=== PATIENT | female | born 1965 | race Two or more races ===

== ENCOUNTER 2025-02-02 21:09 | Emergency (ER) | payer MEDICAID, SELFPAY ==
[2025-02-02 21:11] VITALS: BMI 89.0
[2025-02-02 21:23] VITALS: BP 135/72; PULSE 120; RESP 20; TEMP 38.1; O2SAT 96
--- NOTE | 2025-02-02 21:31 | EDNOTE_ITS ---
Upper Respiratory Inf. RME/HPI General Chief Complaint: General Adult/Misc Complain Stated Complaint: BODY ACHE, HEADACHE, COUGH Time Seen by Provider: 02/02/25 21:13 Source: patient, RN notes reviewed and old records reviewed Arrival date/time: 02/02/25 21:09 Mode of arrival: ambulatory Limitations: no limitations RME / HPI RME / HPI Narrative: 59yof presents to ED for fever, congestion and cough that initiated today. No sick contacts however, patient reports multiple family members work around children. Patient c/o mild headache and generalized body aches. No shortness of breath, chest pain, nausea/vomiting or dizziness reported. Tylenol taken this afternoon with mild relief. Related Data Home Medications ?Medication ?Instructions ?Recorded ?Confirmed albuterol sulfate 90 mcg/actuation 2 puff inhalation Q 6H PRN 06/05/19 02/25/22 aerosol inhaler (Ventolin HFA) Shortness Of Breath aspirin 81 mg tablet,delayed 81 mg PO DAILY 06/05/19 0 02/25/22 release (Aspir-) hydrochlorothiazide 25 mg tablet 25 mg PO QDAY 9 02/25/22 cyclobenzaprine 10 mg tablet 10 mg PO TID 08/13/1902/08 gabapentin 300 mg capsule 300 mg PO BID 08/13/1902/25 Previous Rx's ?Medication ?Instructions ?Recorded hydrocodone 5 mg-acetaminophen 325 1 tab PO Q6H PRN pa in #7 tabs 08/13/19 mg tablet ([employer]) ibuprofen 800 mg tablet 800 mg PO Q6H PRN pain #10 t abs 08/13/19 acetaminophen 500 mg tablet 1,000 mg (2 x 500 mg) PO Q 6H PRN 02/03/25 (Tylenol Extra Strength) fever or pain #30 tabs amoxicillin 875 mg-potassium 1 tab PO BID 7 days #14 t abs 02/03/25 clavulanate 125 mg tablet benzonatate 200 mg capsule 200 mg PO Q8HR PRN cough #2 0 caps 02/03/25 dextromethorphan-guaifenesin ER 60 1 tab PO Q12H PRN c ongestion/cough 02/03/25 mg-1,200 mg tab,extend #14 tabs release,12hr (Mucinex DM) ibuprofen 600 mg tablet 600 mg PO Q6H PRN fever or p ain 02/03/25 #30 tabs Allergies Allergy/AdvReac Type Severity Reaction Status Date / Time No Known Allergies Allergy Verified 02/02/25 21:13 Review of Systems Review of Systems Systems Reviewed: All systems reviewed, normal except as documented Constitutional Constitutional: Reports chills, Reports fever(s) and Reports headache(s) ENT Ears, Nose, Mouth, and Throat: Reports headache(s) and Reports nasal congestion Cardiovascular Cardiovascular: Denies chest pain and Denies dyspnea Respiratory Respiratory: Denies dyspnea Neurologic Neurologic: Reports headache(s) Past Medical History Past Medical History CARDIAC: Positive Hypertension RESPIRATORY: Positive Asthma GASTROINTESTINAL: Positive Obesity Social History SMOKING STATUS: Never smoker SUBSTANCE USE: does not use ALCOHOL: Never ED Exam General Limitations: Present no limitations General appearance: Present alert and in no apparent distress Head Head exam: Present atraumatic and normocephalic Eye Eye exam: Present normal appearance, PERRL and EOMI ENT ENT exam: Present normal oropharynx, mucous membranes moist, TM's normal bilaterally and other (Mild UAC) Neck Neck exam: Present normal inspection and full ROM; Absent meningismus Chest Chest inspection: Present normal inspection and symmetric chest wall rise Respiratory Respiratory exam: Present normal lung sounds bilaterally and other (No wheezing, rales or rhonchi); Absent respiratory distress Cardiovascular Cardiovascular exam: Present normal rhythm and tachycardia Extremities Exam Extremities exam: Present normal inspection and full ROM Back Exam Back exam: Present normal inspection and full ROM; Absent tenderness Neurological Exam Neurological exam: Present alert and oriented X3 Psychiatric Psychiatric exam: Present normal affect and normal mood Skin Skin exam: Present warm, dry, intact and normal color Course Quality Measures none Orders Category Date Time Status Bedside COVID-19 Antigen Test NOW Care 02/02/25 21:31 Completed Bedside Influenza A&B Antigen Test NOW Care 02/02/25 21:31 Completed CXR [XR chest 1V] Stat Exams 02/02/25 22:03 Completed CBC Stat Lab 02/02/25 23:49 Completed CMP [Comprehensive Metabolic Panel] Stat Lab 02/02/25 23:49 Completed Lactate (Lactic Acid) Stat Lab 02/02/25 23:49 Completed Acetaminophen Tab [Tylenol ES Tab] Med 02/02/25 21:41 Discontinued 1,000 mg PO X1 ONE HYDROcodone/APAP 10/325 [[employer] 10/325] Med 02/03/25 00:39 Discontinued 1 tab PO X1 ONE Ibuprofen Tab [Motrin Tab] Med 02/02/25 21:31 Discontinued 800 mg PO X1 ONE Vital Signs Vital signs: Vital Signs Temperature 100.6 F H 02/02/25 21:23 Pulse Rate 120 H 02/02/25 21:23 Respiratory Rate 20 02/02/25 21:23 Blood Pressure 135/72 H 02/02/25 21:23 Pulse Oximetry (%) 96 02/02/25 21:23 Upper Respiratory Infection MDM Narrative MDM Narrative:: 59yof presents to ED for fever, congestion and cough that initiated today. No sick contacts however, patient reports multiple family members work around children. Patient c/o mild headache and generalized body aches. No shortness of breath, chest pain, nausea/vomiting or dizziness reported. Tylenol taken this afternoon with mild relief. Patient is non-toxic appearing, vitals are stable. No evidence respiratory distress or hypoxia. Suspect viral etiology of symptoms. However, due to leukocytosis with mild left shift, will additionally cover with antibiotic. Of note, patient has history of leukocytosis/left shift in past. Encouraged rest, fluids, symptomatic treatment, fever management prn. Stable for discharge, RTED precautions given. Patient data External records reviewed:: [facility] previous records (04/09/2023 ED visit for sinusitis) Clinical information provided by:: patient Social determinants that could affect healthcare access:: other (specify) (unemployed) Patient has the following chronic illnesses:: HTN, asthma, obesity How is presenting disease/condition affected by chronic disease/condition?: exacerbated by Evaluation data The following diagnostics were reviewed and interpreted by me:: lab results and radiology exam(s) Lab and/or radiology exams considered but not ordered:: None Interpretation Summary: covid negative flu negative CXR: No pneumonia per my read Negative lactate Medications / Prescriptions Medications or Prescriptions considered but not ordered:: No antivirals recommended at this time Medication administrations:: Medication Administration History Discontinued Medications Acetaminophen (Acetaminophen 500 Mg Tablet) 1,000 mg PO X1 ONE Stop: 02/02/25 21:42 Last Admin: 02/02/25 22:32 Dose: 1,000 mg Documented By: BD Hydrocodone Bitart/Acetaminophen (Hydrocodone/Apap 10/325 Tab) 1 tab PO X1 ONE Stop: 02/03/25 00:40 Last Admin: 02/03/25 00:54 Dose: 1 tab Documented By: IVONNE Ibuprofen (Ibuprofen Tab 400 Mg Tablet) 800 mg PO X1 ONE Stop: 02/02/25 21:32 Last Admin: 02/02/25 22:32 Dose: 800 mg Documented By: IVONNE Above medications administered in ED Consultations Consultation(s) initiated? (list below): No Diagnosis Upper Respiratory Differential Diagnosis: other (URI, viral illness, covid, flu, bronchitis, pneumonia) Most likely diagnosis given after review of the tests above:: cough, leukocytosis Admission Indicated Admission indicated?: not indicated Admission Request Was there a request for admission?: No Disposition Plan Disposition Plan: Discharge Discharge Attestation Discharge Attestation: The patient and all family members were given an opportunity to ask questions and understood the discharge instructions. Discharge instructions specifically effects, indications for sooner follow up or return to the emergency department, and the expected course of current diagnosis. Patient condition: Stable Discharge Plan Plan Patient Disposition: HOME (Self Care) Patient condition on transfer: Stable Prescriptions/Referrals Prescriptions/Med Rec: New ibuprofen 600 mg tablet 600 mg PO Q6H PRN (Reason: fever or pain) Qty: 30 0RF acetaminophen [Tylenol Extra Strength] 500 mg tablet 1,000 mg PO Q6H PRN (Reason: fever or pain) Qty: 30 0RF dextromethorphan-guaifenesin [Mucinex DM] 60-1,200 mg tablet extended release 12 hr 1 tab PO Q12H PRN (Reason: congestion/cough) Qty: 14 0RF benzonatate 200 mg capsule 200 mg PO Q8HR PRN (Reason: cough) Qty: 20 0RF amoxicillin-pot clavulanate 875-125 mg tablet 1 tab PO BID 7 Days Qty: 14 0RF No Action albuterol sulfate [Ventolin HFA] 90 mcg/actuation Hfa Aerosol Inhaler 2 puff INHALATION Q6H PRN (Reason: Shortness Of Breath) aspirin [Aspir-81] 81 mg Tablet,Delayed Release (Dr/Ec) 81 mg PO DAILY hydrochlorothiazide 25 mg Tablet 25 mg PO QDAY cyclobenzaprine 10 mg Tablet 10 mg PO TID gabapentin 300 mg Capsule 300 mg PO BID ibuprofen 800 mg tablet 800 mg PO Q6H PRN (Reason: pain) Qty: 10 0RF hydrocodone-acetaminophen [[employer]] 5-325 mg tablet 1 tab PO Q6H MDD 4 PRN (Reason: pain) Qty: 7 0RF Referrals: No Primary/Family,Physician [Primary Care Provider] - In 1 week Problem List Clinical Impression: Cough, Leukocytosis, Febrile illness Patient/Caregiver Discharge Instructions Education Materials: ED Viral Syndrome (Adult) Print Language: Danish Stand Alone Forms: Suzette Award Info., Patient Portal Info Letter PA/[employer]IVATE [employer]QU[employer]OCIATE Supervising Physician PA/[employer] Supervising Physician: Alexandra
--- NOTE | 2025-02-02 22:03 | XR_ITS ---
Examination: PA chest single view TECHNIQUE: Upright PA chest single view Date and time: February 02, 2025 10:20 PM Comparison 02/24/2022 INDICATIONS: Fever coughing today. FINDINGS: Mild atelectasis left base No lobar pneumonia or pulmonary edema Normal heart size IMPRESSION: No pneumonia or pulmonary edema
[2025-02-02 22:32] VITALS: TEMP 38.1
[2025-02-02] MEDS: IBUPROFEN TAB 400 MG TABLET 800 MG PO (22:32)
[2025-02-02] MEDS: ACETAMINOPHEN 500 MG TABLET 1000 MG PO (22:32)
[2025-02-03] VITALS: TEMP 36.9
[2025-02-03 00:01] LABS: Lactate (Lactic Acid) 1.1 mMol/L (0.4-2.0)
[2025-02-03 00:09] LABS: Basophils # (Auto) 0.1 Thou/mm3 (0.0-0.2); Basophils % (Auto) 0 % (0-2.5); Eosinophils # (Auto) 0.2 Thou/mm3 (0.0-0.5); Eosinophils % (Auto) 1 % (0-10); Hematocrit 37.6 % (36.0-46.0); Hemoglobin 12.6 g/dL (12.0-16.0); Immature Granulocytes Auto 0.07 Thou/mm3 (0.00-0.00); Lymphocytes # (Auto) 2.4 Thou/mm3 (1.0-4.8); Lymphocytes % (Auto) 13 % (10-50); Mean Corpuscular HGB Conc 33.5 g/dl (31.0-37.0); Mean Corpuscular Hemoglobin 31.3 pg (25.0-35.0); Mean Corpuscular Volume 93 fL (80-100); Monocytes # (Auto) 1.2 Thou/mm3 (0.0-0.8); Monocytes % (Auto) 6 % (0-12); Neutrophils # (Auto) 14.3 Thou/mm3 (1.8-7.7); Neutrophils % (Auto) 79 % (37-80); Nucleated Red Blood Cell # 0.00 Thou/mm3 (0.00-0.00); Nucleated Red Blood Cell % 0 /100 WBC (0); Platelet Count 321 Thou/mm3 (140-440); RDW Standard Deviation 43.7 fL (36.4-46.3); Red Blood Count 4.03 Miln/mm3 (4.00-5.20); White Blood Count 18.1 Thou/mm3 (3.6-11.0)
[2025-02-03 00:27] LABS: Alanine Aminotransferase 15 U/L (10-49); Albumin, Serum 4.7 gm/dL (3.5-5.0); Albumin/Globulin Ratio 2.0 (1.2-2.2); Alkaline Phosphatase 117 U/L (46-116); Anion Gap 12 (7-16); Aspartate Amino Transferase 26 U/L (0-34); BUN/Creatinine Ratio 18 Ratio (12-20); Bilirubin,Total 0.7 mg/dL (0.3-1.2); Blood Urea Nitrogen 18 mg/dL (9-23); Calcium 10.3 mg/dL (8.3-10.6); Calcium (Corrected) 10.3 mg/dL (8.5-10.1); Carbon Dioxide 21.0 mMol/L (20.0-31.0); Chloride 102 mMol/L (98-107); Creatinine (Component) 1.0 mg/dL (0.6-1.3); Estimated Creatinine Clearance 59.5 mL/min (>60); Globulin 2.4 gm/dL (2.3-3.5); Glucose 127 mg/dL (74-106); Osmolality,Calculated 274 (275-295); Potassium 3.9 mMol/L (3.4-5.1); Sodium 135 mMol/L (136-145); Total Protein 7.1 gm/dL (5.7-8.2); eGFR > 60 See Note
[2025-02-03 00:28] VITALS: TEMP 36.9
[2025-02-03 00:42] VITALS: PULSE 101; RESP 18; O2SAT 97
== END 2025-02-03 01:01 | disposition home or self-care (01) ==
PROVIDERS: Physician Assistant; Emergency Provider Emergency Medicine
DX: R05.9 Cough, unspecified (principal); R50.9 Fever, unspecified; D72.829 Elevated white blood cell count, unspecified
CPT/HCPCS: 36415; 71045; 80053; 83605; 85025; 87400; 87811; 99283; A9270